=== PATIENT | female | born 1955 | race Caucasian/White ===

== ENCOUNTER → 2017-06-19 | Outpatient (CLI) | payer OTHER ==
[~2017-06-19] MED LIST: ELIQUIS2.5 MG PO; EXCEDRIN CAPLE1 EACH PO; HYDROCODON-ACE1 EAC7 PO; LEVAQUIN 750 M750 MG PO; PANTOPRAZOLE SO40 M1 PO; RESTORIL7.5 M1 PO; TOPROL XL25 MG PO
[2017-06-19 13:34] LABS: HEMATOCRIT 37.9 % (37.0-47.0); HEMOGLOBIN 12.8 gm/dL (12.0-15.0); MCH 31.4 pg (26.0-34.0); MCHC 33.7 g/dL (28.0-37.0); MCV 93.3 fL (80.0-100.0); MPV 6.4 fl. (7.2-11.1); RBC 4.07 mil/uL (4.20-5.00); RDW-CV 13.6 % (10.5-14.5); WBC 6.1 thou/uL (4.0-11.0)
[2017-06-19 13:57] LABS: ALBUMIN 3.7 g/dL (3.4-5.0); CALCIUM 8.7 mg/dL (8.5-10.1); CREATININE 1.3 mg/dL (0.6-1.3); POTASSIUM 3.9 mmol/L (3.5-5.1); TOTAL BILIRUBIN 0.2 mg/dL (<0.1-1.0); TOTAL PROTEIN 6.9 g/dL (6.4-8.2)
== END ==
LOC: M.LAB 13:12
PROVIDERS: Anesthesiology
DX: Z01.812 Encounter for preprocedural laboratory examination (principal)

== ENCOUNTER 2017-07-13 17:51 | Inpatient (IN) | payer OTHER ==
[~2017-07-13] VITALS: Ht 170.2 cm; Wt 89.8 kg
[2017-07-13 12:00] VITALS: BP 114/49
[2017-07-13 20:00] VITALS: BP 166/86
[2017-07-13 20:26] LABS: HEMATOCRIT 36.3 % (37.0-47.0); MCH 30.9 pg (26.0-34.0); MCHC 33.1 g/dL (28.0-37.0); MCV 93.4 fL (80.0-100.0); MPV 6.6 fl. (7.2-11.1); NUCLEATED RBCS 0 /100WBC; PLATELET COUNT* 318 thou/uL (150-400); RBC 3.89 mil/uL (4.20-5.00); RDW-CV 13.2 % (10.5-14.5); WBC 11.9 thou/uL (4.0-11.0)
[2017-07-13 20:39] LABS: ALBUMIN 3.3 g/dL (3.4-5.0); CALCIUM 8.5 mg/dL (8.5-10.1); POTASSIUM 4.3 mmol/L (3.5-5.1); TOTAL BILIRUBIN 0.3 mg/dL (<0.1-1.0); TOTAL PROTEIN 6.3 g/dL (6.4-8.2)
[2017-07-13 20:57] LABS: ABSOLUTE LYMPHOCYTES 0.7 thou/uL (0.8-5.3); ABSOLUTE MONOCYTES 0.7 thou/uL (0.0-1.2); ABSOLUTE NEUTROPHILS 10.5 thou/uL (1.6-8.1); PLATELET ESTIMATE ADEQUATE
[2017-07-14] VITALS (7 sets, daily range): BP systolic 105–164; BP diastolic 50–99
[2017-07-14 04:33] LABS: ABSOLUTE LYMPHOCYTES 1.2 thou/uL (0.8-5.3); ABSOLUTE MONOCYTES 0.9 thou/uL (0.0-1.2); ABSOLUTE NEUTROPHILS 9.2 thou/uL (1.6-8.1); HEMATOCRIT 34.1 % (37.0-47.0); HEMOGLOBIN 11.4 gm/dL (12.0-15.0); LYMPHOCYTES 10.4 %; MCH 31.1 pg (26.0-34.0); MCHC 33.5 g/dL (28.0-37.0); MCV 92.9 fL (80.0-100.0); MONOCYTES 7.9 %; MPV 6.9 fl. (7.2-11.1); NUCLEATED RBCS 0 /100WBC; PLATELET COUNT* 314 thou/uL (150-400); POLYS 81.7 %; RBC 3.67 mil/uL (4.20-5.00); RDW-CV 13.1 % (10.5-14.5); WBC 11.3 thou/uL (4.0-11.0)
[2017-07-14 05:25] LABS: CALCIUM 8.2 mg/dL (8.5-10.1); CREATININE 0.7 mg/dL (0.6-1.3); POTASSIUM 4.2 mmol/L (3.5-5.1)
--- NOTE | 2017-07-14 07:47 | NUR ---
Direct admit from [facility], Dr Connor's patient. She was nota ble to do PT after same day surgery so she was direct admitted in here. Arrived to floor at 1840. Rt knee has mepilex dressing dry and intact with polarcare in place. She had a femoral and popiteal block and she has an On Q pump going into rt thigh it was running at 12ml/hr and I did decrease it to 10ml/hr and she didn't want me to decrease it any more than that. She has had nausea and zofran was x 3. This am she did get a dose of phergan which did seem to help her more. She's also had a headache and we've been placing ice bags and the IV dilaudid has been helping. She has slept intermittenly. Vitals are stable. O2 started at 0400 at 2L n/c because roomair sat was in upper 80's.
--- NOTE | 2017-07-14 11:39 | NUR ---
PATIENT NAUSEOUS AND VOMITING THIS MORNING. HYPERTENSION AND TACHYCARDIA PRESENT. PHYSICIAN MADE AWARE AND NEW ORDERS RECEIVED. GIVEN HYDRALAZINE ORDERED AND BLOOD PRESSURE HAS DECREASED. TACHYCARDIA REMAINS. CTA OF CHEST COMPLETED AND SHOWS NO SIGN OF PULMONARY EMBOLISM. PATIENT GIVEN PRN MEDICATIONS FOR PAIN/HEADACE AND NAUSEA, SEE EMAR. AT BEDSIDE. CALL LIGHT WITHIN REACH. NURSING WILL CONTINUE TO MONITOR.
[2017-07-14 11:44] LABS: URINE BILIRUBIN NEGATIVE (Negative); URINE BLOOD NEGATIVE (Negative); URINE CLARITY CLEAR; URINE COLOR YELLOW; URINE GLUCOSE-RANDOM NEGATIVE (Negative); URINE KETONES NEGATIVE (Negative); URINE LEUKOCYTES-REFLEX NEGATIVE (Negative); URINE NITRITE-REFLEX NEGATIVE (Negative); URINE PROTEIN NEGATIVE (Negative); URINE UROBILINOGEN 0.2 E.U./dl (0.2-1.0)
--- NOTE | 2017-07-14 16:28 | NUR ---
PT.VERY DROWSY. TOLD ME TO TALK TO HER WHO IS AT BEDSIDE. HE SAID P;T.IS NORMALLY INDEPENDENT AT HOME. HAD OUTPT.SURGERY YESTERDAY UP [facility]. THEY LIVE IN [place]. SHE HAD POOR PAIN CONTROL AND N/V SO WAS ADMITTED HERE. SHE HAS A WALKER. 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 HE SAID MAY CHANGE HER HOME PAIN MED. THEY USE [facility] [place] FOR THEIR PHARMACY. FAXED REFERRAL TO [facility] AND THEY CAN ACCEPT PT.TO SERVICE. [phone].
--- NOTE | 2017-07-14 18:04 | NUR ---
ASSUMED CARE OF PATIENT AFTER REPORT THIS MORNING. PATIENT AWAKE, ALERT, AND ORIENTED APPROPRIATELY. PHYSICAL ASSESSMENT COMPLETED AND CHARTED. COMPLAINED OF PAIN AND NAUSEA THIS SHIFT. GIVEN PRN AND SCHEDULED MEDICATIONS, SEE EMAR FOR DOCUMENTATION. VITAL SIGNS STABLE. OXYGEN SATURATION WITHIN NORMAL LIMITS ON 2 LPM PER NASAL CANULA. PATIENT TRANSFERS AND AMBULATES WITH ASSISTANCE FROM STAFF. USES CALL LIGHT APPROPRIATELY, WITHIN REACH. DENIES NEEDS AT THIS TIME. NURSING WILL CONTINUE TO MONITOR.
--- NOTE | 2017-07-14 23:17 | NUR ---
THIS NURSE ASSUMES CARE OF PT [id number], PT IS ALERT AND ORIENTED X4, PT DENIES N/V OR HEADACHE AT THIS TIME, PAIN CONTROLLED WITH IV PAIN MEDS, POLAR PACK, SCDS, AND JAREN HOSE IN PLACE, PT CURRENTLY ON ROOM AIR, O2 SAT 94%, LUNG SOUNDS DIMINISHED, PT RESTING QUIETLY AT THIS TIME CALL LIGHT WITHIN REACH, REPORT GIVEN TO [facility] RAMIREZ AT [id number]
[2017-07-15 03:48] VITALS: BP 154/97
--- NOTE | 2017-07-15 05:46 | NUR ---
RESUMED CARE OF PATIENT FROM DILAN RAMIREZ. I CONCUR WITH HER DOCUMENTATION. PT SLEPT ON AND OFF THIS SHIFT. PT REPORTED PAIN IN HER RIGHT KNEE, AND REPORTED HAVING A HEADACHE. PAIN MEDS GIVEN PER E-MAR. WHEN RESUMING CARE OF PT, PT HAD ON-Q PUMP AT A 8, PT TURNED IT DOWN TO 6, REMINDED PT THAT THE GOAL WAS A 4, PT STATED THAT SHE JUST CAN'T DO THAT, SHE WILL TRY TO LOWER IT AGAIN LATER. IV PATENT, FLUIDS INFUSING. PT VOIDED ADEQUATLY THROUGH NIGHT. PT ENCOUAGED TO USE BSC, PT DID ASK TO USE BEDPAN, BUT USED BSC MOST OF THE TIME. WILL CONTINUE WITH PLAN OF CARE.
[2017-07-15 07:13] LABS: HEMATOCRIT 31.9 % (37.0-47.0); HEMOGLOBIN 10.9 gm/dL (12.0-15.0); MCH 31.7 pg (26.0-34.0); MCHC 34.4 g/dL (28.0-37.0); MCV 92.2 fL (80.0-100.0); MPV 6.9 fl. (7.2-11.1); RBC 3.46 mil/uL (4.20-5.00); RDW-CV 13.3 % (10.5-14.5); WBC 10.4 thou/uL (4.0-11.0)
[2017-07-15 07:17] LABS: CALCIUM 8.5 mg/dL (8.5-10.1); CREATININE 0.8 mg/dL (0.6-1.3); POTASSIUM 3.5 mmol/L (3.5-5.1)
[2017-07-15 11:11] VITALS: BP 138/67
--- NOTE | 2017-07-15 12:41 | NUR ---
RECIEVED O.T. EVAL AND TX ORDERS. WILL DEFER TO P.T. AND NURSING AT THIS TIME. PLEASE ORDER FURTHER O.T. SERVICES IF NEEDED.
[2017-07-15 16:00] VITALS: BP 139/69
--- NOTE | 2017-07-15 18:54 | NUR ---
PATIENT REMAINED ALERT AND ORIENTED X'S 4. VITAL SIGNS AND SPO2 STABLE. IV CLEAN, FLUIDS INFUSING. PAIN WELL CONTROLLED WITH PAIN MEDS. TOLERATED DIET, NO NAUSEA AND VOMITING. NEW ANTIBIOTIC ORDERED AND HUNG. PATIENT TOLERATED. COMPLETED PT. COMPLETED HOURLY ROUNDING. CALL LIGHT WITHIN REACH. WILL CONTINUE TO MONITOR.
[2017-07-15 21:00] VITALS: BP 152/82
[2017-07-16] VITALS: BP 136/74
[2017-07-16 04:00] VITALS: BP 147/64
[2017-07-16 04:12] LABS: HEMATOCRIT 30.7 % (37.0-47.0); HEMOGLOBIN 10.5 gm/dL (12.0-15.0); MCH 31.6 pg (26.0-34.0); MCHC 34.3 g/dL (28.0-37.0); MCV 92.3 fL (80.0-100.0); MPV 7.1 fl. (7.2-11.1); RBC 3.32 mil/uL (4.20-5.00); RDW-CV 13.6 % (10.5-14.5)
[2017-07-16 04:32] LABS: ALBUMIN 2.5 g/dL (3.4-5.0); CALCIUM 8.4 mg/dL (8.5-10.1); CREATININE 0.8 mg/dL (0.6-1.3); POTASSIUM 3.6 mmol/L (3.5-5.1); TOTAL BILIRUBIN 0.4 mg/dL (<0.1-1.0); TOTAL PROTEIN 5.8 g/dL (6.4-8.2)
--- NOTE | 2017-07-16 05:47 | NUR ---
ALERT AND ORIENTED. RESTING QUIETLY IN BED THROUGHOUT NIGHT. IV PAIN MEDICATION GIVEN AND HELPFUL. ON Q PUMP REMAINS AT 4 AT THIS TIME. NPO AT THIS TIME FOR TEST IN AM. UP WITH 1 ASSIST, GAIT BELT AND WALKER. NO C/O N/V. CALL LIGHT WITHIN REACH. PROGRESSING TOWARD DISCHARGE GOAL. DR MORALES HERE AND NOTIFIED OF DISCHARGE GOAL.
[2017-07-16] MEDS ORDERED: LEVAQUIN 750 M750 MG PO (08:21)
[2017-07-16 09:24] VITALS: BP 148/82
[2017-07-16] MEDS ORDERED: ELIQUIS2.5 MG PO (09:34)
[2017-07-16] MEDS ORDERED: PANTOPRAZOLE SO40 M1 PO (09:35)
[2017-07-16] MEDS ORDERED: TOPROL XL25 MG PO (09:36)
[2017-07-16] MEDS ORDERED: HYDROCODON-ACE1 EAC7 PO (09:37)
[2017-07-16] MEDS ORDERED: EXCEDRIN CAPLE1 EACH PO (09:37)
[2017-07-16] MEDS ORDERED: RESTORIL7.5 M1 PO (09:39)
[2017-07-16 10:32] VITALS: BP 142/79; BP 148/82
--- NOTE | 2017-07-17 10:12 | NUR ---
FAXED HOME HEALTH ORDERS TO [facility] [phone] THEY DID NOT RECEIVE YESTERDAY.
== END 2017-07-16 10:49 | disposition home or self-care (01) | DRG 554 ==
LOC: M.ORTHSURG 17:51
PROVIDERS: Family Medicine; Orthopaedic Surgery; ADMIT Internal Medicine
DX: M17.11 Unilateral primary osteoarthritis, right knee (principal); K80.20 Calculus of gallbladder without cholecystitis without obstruction; E04.1 Nontoxic single thyroid nodule; R00.0 Tachycardia, unspecified; R07.89 Other chest pain